=== PATIENT | female | born 1960 | race Asian ===

== ENCOUNTER 2024-04-06 16:35 | Outpatient (CLI) | payer OTHER, SELFPAY ==
[2024-04-06 17:31] LABS: Alanine Aminotransferase 41 U/L (14-59); Albumin Level 4.2 g/dL (3.4-5.0); Alkaline Phosphatase 102 U/L (46-116); Anion Gap 12 mmol/L (4-12); Aspartate Amino Transferase 32 U/L (15-37); Bilirubin,Total 0.4 mg/dL (0.00-1.00); Blood Urea Nitrogen 12 mg/dL (7-18); Calcium 9.4 mg/dL (8.5-10.1); Carbon Dioxide 27 mmol/L (21-32); Chloride 101 mmol/L (98-108); Cholesterol 241 mg/dL (0-200); Creatine Kinase 75 U/L (26-192); Estimated Glomerular Filt Rate > 60; Glucose 89 mg/dL (70-99); HDL Direct 68 mg/dL (40-60); LDL Cholesterol Calculated 133 mg/dL (<130); Osmolality Calculated 288 mOsm/kg (285-295); Potassium 4.4 mmol/L (3.5-5.1); Sodium 140 mmol/L (136-145); Total Protein 8.1 g/dL (6.4-8.2); Triglycerides 198 mg/dL (0-150)
== END 2024-04-06 16:36 | disposition home or self-care (01) ==
PROVIDERS: PCP Internal Medicine; Visit Provider Internal Medicine
DX: E78.2 Mixed hyperlipidemia (principal)
CPT/HCPCS: 36415; 80053; 80061; 82550